=== PATIENT | male | born 1950 | race Caucasian/White ===

== ENCOUNTER 2017-06-30 10:28 | Emergency (ER) | payer MEDICARE ==
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
[2017-06-30 11:43] LABS: CHLORIDE,CL 108 mmol/L (98-107); SODIUM,NA 146 mmol/L (136-145)
== END 2017-06-30 16:06 ==
LOC: VM.ED 10:28
DX: F03.91 Unspecified dementia, unspecified severity, with behavioral disturbance (principal); F31.9 Bipolar disorder, unspecified; E78.00 Pure hypercholesterolemia, unspecified; Z79.899 Other long term (current) drug therapy
CPT/HCPCS: 36415; 80053; 81001; 82550; 83880; 84484; 85025; 85610; 99285

== ENCOUNTER 2018-04-03 10:39 | Emergency (ER) | payer MEDICARE, MEDICAID ==
[2018-04-03] MEDS ORDERED: Sodium Chloride 0.9% 10 ML Syringe FLUSH PRN (10:49)
[2018-04-03] MEDS ORDERED: Sodium Chloride 0.9% 1,000 ML IV ONE (10:51)
[2018-04-03 12:05] LABS: CHLORIDE,CL 104 mmol/L (98-107); SODIUM,NA 141 mmol/L (136-145)
[2018-04-03 12:08] LABS: ANION GAP 13.5 mmol/L (10-20)
--- NOTE | 2018-04-03 12:44 | CR ---
[id number] RAD/RAD Chest PA or AP 1V EXAM: SINGLE VIEW CHEST. INDICATION: SHORTNESS OF BREATH COMPARISON: NO PREVIOUS SIMILAR EXAM IS AVAILABLE FINDINGS: The lungs are clear. An old fracture of the left clavicle is seen. The cardiac silhouette is moderately prominent. IMPRESSION: NO ACUTE PROCESS. Jarrett Sales MD 04/03/18 1711 Thank you for allowing us to participate in the care of your patient.
[2018-04-03] MEDS ORDERED: cefTRIAXone 2 GM Vial IVPUSH ONE (13:21)
--- NOTE | 2018-04-04 01:27 | EDM.PDOC ---
ED HPI GENERAL MEDICAL PROBLEM - General Chief Complaint: Gastrointestinal Problem Time Seen by Provider: 04/03/18 10:50 Source of Information: Reports: Skilled Nursing Records History Limitations: Reports: Altered Mental Status - History of Present Illness INITIAL COMMENTS - FREE TEXT/NARRATIVE: Presents to ER with decreased appetite, somnolence, fatigue and fever. Staff at [facility] noticed this last night, but has been less active for 3 days. He was set up for a clinic appointment but was brought to ER due to complexity of patient. Staff denies any trauma. T max was greater than 101. He did vomit several times last night and today. Onset Date: 04/02/18 Location: Reports: Generalized Associated Symptoms: Reports: Fever/Chills, Nausea/Vomiting - Related Data Allergies Allergy/AdvReac Type Severity Reaction Status Date / Time No Known Allergies Allergy Verified 04/03/18 12:23 Home Meds: Home Meds Aspirin [Ecotrin] 81 mg PO DAILY 10/15/15 [History] Citalopram [Celexa] 20 mg PO DAILY 10/15/15 [History] Rivastigmine Tartrate [Rivastigmine] 6 mg PO BID 10/15/15 [History] risperiDONE 1 mg PO BID 10/15/15 [History] Acetaminophen 650 mg PO Q4H PRN 06/30/17 [History] Cholecalciferol (Vitamin D3) [Vitamin D3] 1 tab PO DAILY 06/30/17 [History] ClonazePAM [KlonoPIN] 0.5 mg PO TID 06/30/17 [History] Divalproex Sodium [Depakote Sprinkle] 500 mg PO DAILY@08 06/30/17 [History] Divalproex Sodium [Depakote Sprinkle] 750 mg PO DAILY@06/30/17 [History] Mirtazapine [Remeron] 45 mg PO DAILY 06/30/17 [History] Multivitamin with Minerals [Multiple Vitamin] 1 tab PO DAILY 06/30/17 [History] OLANZapine [ZyPREXA] 5 mg PO TID 06/30/17 [History] [place]-3/DHA & EPA/Ala/Vit D3 [[place]-3 Gummies] 1 each PO BID 06/30/17 [History] Polyethylene Glycol 3350 [MiraLAX] 17 gm PO DAILY 06/30/17 [History] Rivaroxaban [Xarelto] 20 mg PO DAILY 06/30/17 [History] Rivastigmine [Exelon] 4.5 mg PO BID 06/30/17 [History] atorvaSTATin Calcium [Atorvastatin Calcium] 20 mg PO DAILY 06/30/17 [History] traZODone HCl [Trazodone HCl] 150 mg PO DAILY 06/30/17 [History] Past Medical History Cardiovascular History: Reports: Blood Clots/VTE/DVT, High Cholesterol Gastrointestinal History: Reports: Chronic Constipation Neurological History: Reports: Alzheimers Disease Psychiatric History: Reports: Bipolar, Dementia Social & Family History - Tobacco Use Smoking Status *Q: Never Smoker - Recreational Drug Use Recreational Drug Use: No ED ROS GENERAL - Review of Systems Review Of Systems: Unable To Obtain ED EXAM, GENERAL - Physical Exam Exam: See Below Exam Limited By: No Limitations General Appearance: Alert, WD/WN, No Apparent Distress Eye Exam: Bilateral Eye: EOMI, Normal Fundi, Normal Inspection, PERRL Ears: Normal External Exam, Normal Canal, Hearing Grossly Normal, Normal TMs Ear Exam: Bilateral Ear: Auricle Normal, Canal Normal, TM normal Throat/Mouth: Normal Inspection, Normal Lips, Normal Teeth, Normal Gums, Normal Oropharynx, Normal Voice, No Airway Compromise Head: Atraumatic, Normocephalic Neck: Normal Inspection, Supple, Non-Tender, Full Range of Motion Respiratory/Chest: No Respiratory Distress, Lungs Clear, Normal Breath Sounds, No Accessory Muscle Use, Chest Non-Tender Cardiovascular: Normal Peripheral Pulses, Regular Rate, Rhythm, No Edema, No Gallop, No JVD, No Murmur, No Rub Peripheral Pulses: 3+: Radial (L), Radial (R) GI/Abdominal: Normal Bowel Sounds, Soft, Non-Tender, No Organomegaly, No Distention, No Abnormal Bruit, No Mass (Male) Exam: Deferred, Other (smells of concentrated urine) Rectal (Males) Exam: Deferred Back Exam: Normal Inspection, Full Range of Motion Extremities: Normal Inspection, Normal Range of Motion, Non-Tender, No Pedal Edema, Normal Capillary Refill Neurological: Other (awake or arousable, non-verbal which is normal according to staff) Skin Exam: Warm, Dry, Intact, Normal Color, No Rash Lymphatic: No Adenopathy Course - Vital Signs Last Recorded V/S: Last Vital Signs Temp 37.3 C 04/03/18 10:40 Pulse 103 H 04/03/18 10:40 Resp 22 H 04/03/18 10:40 BP 130/84 04/03/18 10:40 Pulse Ox 94 L 04/03/18 10:40 - Orders/Labs/Meds Orders: Active Orders 24 hr Category Date Time Status Dietary Supplements [RC] BIDMEALS Care 04/03/18 13:22 Active Insert Urinary Catheter [OM.PC] Q24H Care 04/03/18 12:30 Ordered Urinary Catheter Assessment [RC] ASDIRECTED Care 04/03/18 15:03 Active CULTURE BLOOD [BC] Stat Lab 04/03/18 11:09 Results CULTURE BLOOD [BC] Stat Lab 04/03/18 11:17 Results Blood Culture x2 Reflex Set [OM.PC] Stat Oth 04/03/18 10:51 Ordered Peripheral IV Insertion Adult [OM.PC] Routine Oth 04/03/18 10:50 Ordered Labs: Laboratory Tests 04/03/18 04/03/18 04/03/18 Range/Units 11:17 11:17 11:17 WBC 9.6 (4.0-10.0) x10^3/uL RBC 5.08 (4.5-6.0) x10^6/uL Hgb 15.8 (14.0-18.0) g/dL Hct 48.6 (40.0-52.0) % MCV 95.7 H (78.0-93.0) fL MCH 31.1 (26.0-32.0) pg MCHC 32.5 (32.0-36.0) g/dL RDW Coeff of Betsy 13.5 (10.0-15.0) % Plt Count 118 L (130-400) x10^3/uL Neut % (Auto) 69.6 (50.0-80.0) % Lymph % (Auto) 14.3 L (25.0-50.0) % [place] % (Auto) 15.6 H (2.0-11.0) % Eos % (Auto) 0.4 (0.0-4.0) % Baso % (Auto) 0.1 L (0.2-1.2) % PT 9.7 (9.6-11.4) SEC INR 0.9 L (2.0-3.5) Sodium 141 (136-145) mmol/L Potassium 4.5 (3.5-5.1) mmol/L Chloride 104 (98-107) mmol/L Carbon Dioxide 28 (21-32) mmol/L Anion Gap 13.5 (10-20) mmol/L BUN 26 H (7-18) mg/dL Creatinine 1.0 (0.70-1.30) mg/dL Est Cr Clr Drug Dosing TNP Estimated GFR (MDRD) > 60 Glucose 111 H (74-106) mg/dL Lactic Acid (0.4-2.0) mmol/L Calcium 9.7 (8.5-10.1) mg/dL Corrected Calcium 10.50 H (8.5-10.1) mg/dL Total Bilirubin 0.6 (0.2-1.0) mg/dL AST 32 (15-37) U/L ALT 26 (16-63) U/L Alkaline Phosphatase 76 (46-116) U/L C-Reactive Protein 10.0 H (<=0.9) mg/dL Total Protein 7.6 (6.4-8.2) g/dL Albumin 3.0 L (3.4-5.0) g/dL Globulin 4.6 Albumin/Globulin Ratio 0.65 TSH, Ultra Sensitive 3.874 H (0.358-3.74) uIU/mL Urine Color (YELLOW) Urine Appearance (CLEAR) Urine pH (5.0-8.0) Ur Specific [place] Urine Protein (NEGATIVE) mg/dL Urine Glucose (UA) (NEGATIVE) mg/dL Urine Ketones (NEGATIVE) mg/dL Urine Occult Blood (NEGATIVE) Urine Nitrite (NEGATIVE) Urine Bilirubin (NEGATIVE) Urine Urobilinogen (0.2) EU/dL Ur Leukocyte Esterase (NEGATIVE) Urine RBC (NOT SEEN) /HPF Urine WBC (NOT SEEN) /HPF Ur Squamous Epith Cells (NEGATIVE) /HPF Urine Bacteria (NEGATIVE) /HPF Urine Mucus (NEGATIVE) /LPF 04/03/18 04/03/18 Range/Units 11:17 12:45 WBC (4.0-10.0) x10^3/uL RBC (4.5-6.0) x10^6/uL Hgb (14.0-18.0) g/dL Hct (40.0-52.0) % MCV (78.0-93.0) fL MCH (26.0-32.0) pg MCHC (32.0-36.0) g/dL RDW Coeff of [place] (10.0-15.0) % Plt Count (130-400) x10^3/uL Neut % (Auto) (50.0-80.0) % Lymph % (Auto) (25.0-50.0) % [place] % (Auto) (2.0-11.0) % Eos % (Auto) (0.0-4.0) % Baso % (Auto) (0.2-1.2) % PT (9.6-11.4) SEC INR (2.0-3.5) Sodium (136-145) mmol/L Potassium (3.5-5.1) mmol/L Chloride (98-107) mmol/L Carbon Dioxide (21-32) mmol/L Anion Gap (10-20) mmol/L BUN (7-18) mg/dL Creatinine (0.70-1.30) mg/dL Est Cr Clr Drug Dosing Estimated GFR (MDRD) Glucose (74-106) mg/dL Lactic Acid 1.6 (0.4-2.0) mmol/L Calcium (8.5-10.1) mg/dL Corrected Calcium (8.5-10.1) mg/dL Total Bilirubin (0.2-1.0) mg/dL AST (15-37) U/L ALT (16-63) U/L Alkaline Phosphatase (46-116) U/L C-Reactive Protein (<=0.9) mg/dL Total Protein (6.4-8.2) g/dL Albumin (3.4-5.0) g/dL Globulin Albumin/Globulin Ratio TSH, Ultra Sensitive (0.358-3.74) uIU/mL Urine Color Yellow (YELLOW) Urine Appearance Slightly cloudy H (CLEAR) Urine pH 7.5 (5.0-8.0) Ur Specific [place] 1.025 Urine Protein 100 H (NEGATIVE) mg/dL Urine Glucose (UA) Negative (NEGATIVE) mg/dL Urine Ketones Negative (NEGATIVE) mg/dL Urine Occult Blood Large H (NEGATIVE) Urine Nitrite Negative (NEGATIVE) Urine Bilirubin Negative (NEGATIVE) Urine Urobilinogen 0.2 (0.2) EU/dL Ur Leukocyte Esterase Moderate H (NEGATIVE) Urine RBC 5-10 H (NOT SEEN) /HPF Urine WBC 30-40 H (NOT SEEN) /HPF Ur Squamous Epith Cells Not seen (NEGATIVE) /HPF Urine Bacteria Many H (NEGATIVE) /HPF Urine Mucus Rare H (NEGATIVE) /LPF Meds: Medications Discontinued Medications Generic Name Dose Route Start Last Admin Trade Name Freq PRN Reason Stop Dose Admin Ceftriaxone Sodium 2 gm 04/03/18 13:21 04/03/18 13:28 Rocephin IVPUSH 04/03/18 13:22 2 gm STAT ONE Administration Sodium Chloride 1,000 mls @ 1,000 mls/hr 04/03/18 10:51 04/03/18 11:29 Normal Saline IV 04/03/18 11:50 1,000 mls/hr .BOLUS ONE Administration Sodium Chloride 10 ml 04/03/18 10:49 Saline Flush FLUSH ASDIRECTED PRN Keep Vein Open - Radiology Interpretation Free Text/Narrative:: CXR is negative Departure - Departure Time of Disposition: 13:50 Disposition: DC/Tfer to [facility] 03 Clinical Impression: UTI, Urinary tract infectious disease - Discharge Information Instructions: Dehydration, Adult, [id number], Urinary Tract Infection, Adult , Sulfamethoxazole; Trimethoprim, SMX-TMP tablets, Probiotics Referrals: PCP,Unknown [Primary Care Provider] - Forms: ED Department Discharge Additional Instructions: Start bactrim DS twice daily for 5 days Encourage plenty of fluids Follow-up in clinic in 10-14 days. - My Orders Last 24 Hours: My Active Orders 04/03/18 10:50 Peripheral IV Insertion Adult [OM.PC] Routine 04/03/18 10:51 Blood Culture x2 Reflex Set [OM.PC] Stat 04/03/18 11:09 CULTURE BLOOD [BC] Stat 04/03/18 11:17 CULTURE BLOOD [BC] Stat 04/03/18 12:30 Insert Urinary Catheter [OM.PC] Q24H 04/03/18 13:22 Dietary Supplements [RC] BIDMEALS 04/03/18 15:03 Urinary Catheter Assessment [RC] ASDIRECTED - Assessment/Plan Last 24 Hours: My Active Orders 04/03/18 10:50 Peripheral IV Insertion Adult [OM.PC] Routine 04/03/18 10:51 Blood Culture x2 Reflex Set [OM.PC] Stat 04/03/18 11:09 CULTURE BLOOD [BC] Stat 04/03/18 11:17 CULTURE BLOOD [BC] Stat 04/03/18 12:30 Insert Urinary Catheter [OM.PC] Q24H 04/03/18 13:22 Dietary Supplements [RC] BIDMEALS 04/03/18 15:03 Urinary Catheter Assessment [RC] ASDIRECTED Plan: Start bactrim DS twice daily for 5 days Encourage plenty of fluids Follow-up in clinic in 10-14 days.
== END 2018-04-03 13:50 ==
LOC: VM.ED 10:39
DX: N39.0 Urinary tract infection, site not specified (principal); Z79.82 Long term (current) use of aspirin; Z79.899 Other long term (current) drug therapy
CPT/HCPCS: 36415; 71045; 80053; 81001; 83605; 84443; 85025; 85610; 86140; 87040; 87804; 87804-59; 96361; 96374; 99285; J0696; J7030

== ENCOUNTER 2021-12-13 12:56 | Emergency (ER) | payer MEDICARE ==
[2022-01-05 14:54] LABS: ANION GAP 10.7 mmol/L (5-15); CHLORIDE,CL 104 mmol/L (98-107); ESTIMATED GFR 71 mL/min (>=60); SODIUM,NA 140 mmol/L (136-145)
== END 2021-12-13 14:53 ==
LOC: VM.ED 12:56
DX: R40.4 Transient alteration of awareness (principal)
CPT/HCPCS: 70450; 80053; 84484; 85025; 85610; 99284

== ENCOUNTER 2023-02-17 20:26 | Emergency (ER) | payer MEDICAID, MEDICARE ==
[2023-02-17] MEDS: Diphtheria,Pertussis(Acell),Tetanus Vaccine 0.5 ML Syringe IM ONE (20:45)
== END 2023-02-17 20:48 | disposition home or self-care (01) ==
LOC: VM.ED 20:26
DX: S01.81XA Laceration without foreign body of other part of head, initial encounter (principal); E78.00 Pure hypercholesterolemia, unspecified; Z79.02 Long term (current) use of antithrombotics/antiplatelets; Z79.82 Long term (current) use of aspirin; W19.XXXA Unspecified fall, initial encounter
CPT/HCPCS: 12011; 90471; 90715; 99282; 99283-25

== ENCOUNTER 2023-09-09 11:33 | Emergency (ER) | payer MEDICARE, MEDICAID | END 2023-09-09 12:20 | LOC: VM.ED 11:33 | DX: S01.01XA Laceration without foreign body of scalp, initial encounter (principal); Z79.899 Other long term (current) drug therapy; W01.0XXA Fall on same level from slipping, tripping and stumbling without subsequent striking against object, initial encounter | CPT/HCPCS: 12001; 99283; 99284 ==